=== PATIENT | female | born 1990 | race Caucasian/White ===

== ENCOUNTER 2024-04-06 18:19 | Emergency (ER) | payer MEDICAID ==
[~2024-04-06] VITALS: Ht 162.6 cm; Wt 81.0 kg
[2024-04-06 18:22] VITALS: BP 114/71; TEMP 98.7; O2SAT 99
[2024-04-06 18:28] VITALS: PULSE 87; RESP 18; O2SAT 100
[2024-04-06 19:01] LABS: CLARITY URINE CLOUDY (CLEAR); COLOR URINE DARK YELLOW (YELLOW); GLUCOSE URINE NEGATIVE (NEGATIVE); KETONES URINE NEGATIVE (NEGATIVE); LEUKOCYTE ESTERASE URINE 1+ (NEGATIVE); NITRITE URINE POSITIVE (NEGATIVE); OCCULT BLOOD URINE 1+ (NEGATIVE); PH URINE 5.5 (4.5-8.0); PROTEIN URINE 1+ (NEGATIVE)
[2024-04-06] MEDS ORDERED: CEPH500C2 MT (19:16)
[2024-04-06 19:50] LABS: BACTERIA URINE TRACE; SQUAMOUS EPITHELIAL CELL URINE 1+ /lpf (RARE/1+); WBC URINE 15-25 /hpf (0-2)
== END 2024-04-06 19:21 | disposition home or self-care (01) ==
LOC: EDBD 18:19 → ER 18:19
DX: N39.0 Urinary tract infection, site not specified (principal); Z90.49 Acquired absence of other specified parts of digestive tract
CPT/HCPCS: 81003; 81025; 87077; 87186; 99283